=== PATIENT | male | born 1960 | race Caucasian/White ===

== ENCOUNTER 2018-09-19 07:09 | Day surgery (SDC) | payer OTHER ==
[2018-09-19] MEDS ORDERED: MIDAZOLAM 1 MG/ML 2 ML INJ ×2 (10:43)
[2018-09-19] MEDS ORDERED: FENTAnyl 50 MCG/ML VIAL (10:43)
== END 2018-09-19 15:31 | disposition home or self-care (01) ==
LOC: GIL 07:09
DX: D12.5 Benign neoplasm of sigmoid colon (principal); K57.30 Diverticulosis of large intestine without perforation or abscess without bleeding; I10 Essential (primary) hypertension
CPT/HCPCS: 45380; 88305